=== PATIENT | female | born 1930 | race Caucasian/White ===

== ENCOUNTER 2017-02-18 01:54 | Inpatient (IN) | payer OTHER ==
[~2017-02-18] VITALS: Ht 157.5 cm; Wt 55.9 kg
[2017-02-18] VITALS (10 sets, daily range): BP systolic 91–133; BP diastolic 52–70
[~2017-02-18 01:54] MED LIST: ARICEPT10 MG PO; ASPI-COR81 M3 PO; ASPIR 8181 MG PO; CARVEDILOL25 M1 PO; CARVEDILOL3.125 M1 PO; COR6 PO; CORE25 PO; COREG12.5 MG PO; DIG125 PO; DIGOXIN0.125 M1 PO; DONEPEZIL HYDRO10 M2 PO; DYA; DYA PO; GEMFIBROZIL600 MG PO; LAC PO; LEVAQUIN750 MG PO; LEVOTHYROXIN0.088 M1 PO; LEVOXYL0.088 MG PO; LOPID600 MG PO; LORAZEPAM0.5 MG PO; MAXZIDE1 TAB PO; NEU300 PO; OMEPRAZOLE DR20 M1 PO; POTASSIUM CHLO10 MEQ PO; POTASSIUM CITR10 MEQ PO; PRADAXA150 M1 PO; PRADAXA75 M1 PO; PRILOSEC20 MG PO; SERTRALINE HYDR50 M1 PO; SIMVASTATIN10 M1 PO; SYNTHROID0.088 MG PO; TRAMADOL HCL50 MG PO; ULTRAM50 MG PO; ZOLOFT50 MG PO
[2017-02-18 02:22] LABS: BASOPHIL % 0.4 % (0-2)
[2017-02-18 02:29] LABS: CALCIUM 8.3 mg/dL (8.5-10.1); CARBON DIOXIDE 26.6 mmol/L (21-32); CHLORIDE SERUM 106 mmol/L (98-107); CREATININE SERUM 1.7 mg/dL (0.6-1.0); GLUCOSE SERUM 125 mg/dL (74-106); SODIUM SERUM 142 mmol/L (136-145)
[2017-02-18 02:30] LABS: RED CELL DISTRIBUTION WIDTH 18.1 % (11.5-14.5)
[2017-02-18 02:31] LABS: PLATELET COUNT 525 x10^3mcL (130-400)
[2017-02-18 02:39] LABS: ALKALINE PHOSPHATASE 131 U/L (46-116); ALT/SGPT 12 U/L (14-59); AST/SGOT 25 U/L (15-37); BILIRUBIN TOTAL 0.27 mg/dL (0.20-1.00); CHOLESTEROL 169 mg/dL (<200); CHOLESTEROL/HDL RATIO 4.2; HDL CHOLESTEROL 40 mg/dL (40-60); LIPASE 195 IU/L (73-393); TOTAL PROTEIN, SERUM 6.7 g/dL (6.4-8.2); TRIGLYCERIDES 86 mg/dL (<150)
[2017-02-18 02:44] LABS: T3 TOTAL 0.47 ng/mL
[2017-02-18 03:03] LABS: FREE T4 0.75 ng/dL (0.76-1.46)
[2017-02-18 03:04] LABS: FREE THYROXINE INDEX 1.2 ug/dL (1.4-4.5)
[2017-02-18 03:18] LABS: microscopic required? NO
[2017-02-18 04:17] LABS: UA SPECIFIC GRAVITY 1.015 (1.005-1.035); urine erythrocyte NEGATIVE (NEGATIVE)
[2017-02-18 04:57] LABS: MAGNESIUM 2.2 mg/dL (1.8-2.4); PHOSPHOROUS 4.4 mg/dL (2.5-4.9)
[2017-02-18] MEDS ORDERED: ALDACTONE25 MG PO (08:25)
[2017-02-18 09:35] LABS: IRON 45 ug/dL (50-170); TOTAL IRON BINDING CAPACITY 375 ug/dL (250-450)
[2017-02-18 09:54] LABS: RED BLOOD CELLS 2.07 M/mm3 (4.10-5.10)
[2017-02-18 17:22] LABS: BASOPHIL % 0.4 % (0-2)
[2017-02-18 17:29] LABS: CALCIUM 8.1 mg/dL (8.5-10.1); CARBON DIOXIDE 23.1 mmol/L (21-32); CHLORIDE SERUM 110 mmol/L (98-107); CREATININE SERUM 1.6 mg/dL (0.6-1.0); GLUCOSE SERUM 91 mg/dL (74-106); POTASSIUM SERUM 4.2 mmol/L (3.5-5.1); SODIUM SERUM 145 mmol/L (136-145)
[2017-02-18 17:47] LABS: PLATELET COUNT 478 x10^3mcL (130-400); RED CELL DISTRIBUTION WIDTH 17.6 % (11.5-14.5)
[2017-02-18 18:24] LABS: rbc morphology (normal/abnorm) ABNORMAL (NORMAL)
[2017-02-18 18:25] LABS: acanthocyte (spur cell) 1+
[2017-02-18 22:37] LABS: microscopic required? YES; urine erythrocyte NEGATIVE (NEGATIVE)
[2017-02-19 05:30] VITALS: BP 100/56
[2017-02-19 06:13] LABS: BASOPHIL % 0.3 % (0-2)
[2017-02-19 06:24] LABS: CALCIUM 8.2 mg/dL (8.5-10.1); CARBON DIOXIDE 21.4 mmol/L (21-32); CHLORIDE SERUM 110 mmol/L (98-107); CREATININE SERUM 1.6 mg/dL (0.6-1.0); GLUCOSE SERUM 80 mg/dL (74-106); MAGNESIUM 2.7 mg/dL (1.8-2.4); PHOSPHOROUS 4.9 mg/dL (2.5-4.9); POTASSIUM SERUM 4.2 mmol/L (3.5-5.1); SODIUM SERUM 145 mmol/L (136-145)
[2017-02-19 06:30] LABS: ALBUMIN 2.5 g/dL (3.4-5.0)
[2017-02-19 06:32] LABS: PLATELET COUNT 428 x10^3mcL (130-400); RED CELL DISTRIBUTION WIDTH 18.3 % (11.5-14.5)
[2017-02-19 12:55] VITALS: BP 99/66
[2017-02-19 16:52] LABS: BASOPHIL % 0.1 % (0-2)
[2017-02-19 16:54] LABS: PLATELET COUNT 410 x10^3mcL (130-400); RED CELL DISTRIBUTION WIDTH 19.6 % (11.5-14.5)
[2017-02-19 17:29] VITALS: BP 115/63
[2017-02-19 21:39] VITALS: BP 135/62
[2017-02-20 05:46] VITALS: BP 104/59
[2017-02-20 06:04] LABS: BASOPHIL % 0.3 % (0-2)
[2017-02-20 06:37] LABS: CALCIUM 8.3 mg/dL (8.5-10.1); CARBON DIOXIDE 23.4 mmol/L (21-32); CHLORIDE SERUM 111 mmol/L (98-107); CREATININE SERUM 1.4 mg/dL (0.6-1.0); GLUCOSE SERUM 108 mg/dL (74-106); MAGNESIUM 2.2 mg/dL (1.8-2.4); POTASSIUM SERUM 4.2 mmol/L (3.5-5.1); SODIUM SERUM 143 mmol/L (136-145)
[2017-02-20 06:41] LABS: PLATELET COUNT 401 x10^3mcL (130-400); RED CELL DISTRIBUTION WIDTH 18.5 % (11.5-14.5)
[2017-02-20 08:52] VITALS: BP 148/61
[2017-02-20 13:02] VITALS: BP 135/71
[2017-02-20 17:07] VITALS: BP 147/66
[2017-02-20 21:27] VITALS: BP 117/70
[2017-02-21 01:02] VITALS: Ht 157.5 cm; Wt 55.9 kg
[2017-02-21 05:39] VITALS: BP 148/64
[2017-02-21 06:55] LABS: CALCIUM 8.3 mg/dL (8.5-10.1); CARBON DIOXIDE 23.2 mmol/L (21-32); CHLORIDE SERUM 109 mmol/L (98-107); CREATININE SERUM 1.3 mg/dL (0.6-1.0); GLUCOSE SERUM 84 mg/dL (74-106); PHOSPHOROUS 3.1 mg/dL (2.5-4.9); POTASSIUM SERUM 3.7 mmol/L (3.5-5.1); SODIUM SERUM 143 mmol/L (136-145)
[2017-02-21 06:57] LABS: BASOPHIL % 0.3 % (0-2)
[2017-02-21 07:29] LABS: PLATELET COUNT 408 x10^3mcL (130-400); RED CELL DISTRIBUTION WIDTH 18.3 % (11.5-14.5)
[2017-02-21 09:15] VITALS: BP 135/60
[2017-02-21 13:58] VITALS: BP 123/48
[2017-02-21 18:25] VITALS: BP 134/55
[2017-02-21 21:59] VITALS: BP 123/73
[2017-02-22 05:51] LABS: BASOPHIL % 0.3 % (0-2)
[2017-02-22 06:04] LABS: CALCIUM 8.4 mg/dL (8.5-10.1); CARBON DIOXIDE 24.4 mmol/L (21-32); CHLORIDE SERUM 109 mmol/L (98-107); CREATININE SERUM 1.2 mg/dL (0.6-1.0); GLUCOSE SERUM 98 mg/dL (74-106); POTASSIUM SERUM 3.9 mmol/L (3.5-5.1); SODIUM SERUM 143 mmol/L (136-145)
[2017-02-22 06:12] VITALS: BP 99/63
[2017-02-22 06:53] LABS: PLATELET COUNT 441 x10^3mcL (130-400); RED CELL DISTRIBUTION WIDTH 17.9 % (11.5-14.5)
[2017-02-22] MEDS ORDERED: COR6 PO (16:52)
[2017-02-22] MEDS ORDERED: APAP/HYDROCODON1 T13 PO (16:53)
[2017-02-22] MEDS ORDERED: PRADAXA75 M1 PO (16:53)
[2017-02-22] MEDS ORDERED: LEVSIN-SL0.125 MG SL (16:53)
[2017-02-22] MEDS ORDERED: TYL325 PO (16:54)
[2017-02-22] MEDS ORDERED: COL250 PO (16:54)
[2017-02-22] MEDS ORDERED: DEP250 PO (17:00)
[2017-02-22] MEDS ORDERED: PRILOSEC OTC20 M1 PO (17:12)
[2017-02-22 17:15] VITALS: BP 99/63
[2017-02-22 17:35] VITALS: BP 109/87
== END 2017-02-22 18:15 | DRG 480 ==
LOC: ED 01:54 → DU 04:04 → MU 02-22 09:33
PROVIDERS: Family Medicine; Neuromusculoskeletal Medicine, Sports Medicine; Specialist; ADMIT Family Medicine
PROC: 0QS704Z Reposition Left Upper Femur with Internal Fixation Device, Open Approach (ICD-10-PCS; principal; 2017-02-19 07:30)
DX: S72.142A Displaced intertrochanteric fracture of left femur, initial encounter for closed fracture (principal); N17.0 Acute kidney failure with tubular necrosis; I50.43 Acute on chronic combined systolic (congestive) and diastolic (congestive) heart failure; E43 Unspecified severe protein-calorie malnutrition; I11.0 Hypertensive heart disease with heart failure; I48.2 Chronic atrial fibrillation; G30.9 Alzheimer's disease, unspecified; D50.9 Iron deficiency anemia, unspecified; F02.80 Dementia in other diseases classified elsewhere, unspecified severity, without behavioral disturbance, psychotic disturbance, mood disturbance, and anxiety; I07.1 Rheumatic tricuspid insufficiency; I27.2 Other secondary pulmonary hypertension; D47.3 Essential (hemorrhagic) thrombocythemia; E78.5 Hyperlipidemia, unspecified; E03.9 Hypothyroidism, unspecified; F32.9 Major depressive disorder, single episode, unspecified; Z66 Do not resuscitate; Z91.81 History of falling; W19.XXXA Unspecified fall, initial encounter; Y92.193 Bedroom in other specified residential institution as the place of occurrence of the external cause
CPT/HCPCS: 76001; 83880; 84439; 97110-GP; 97116-GP; 97530-GP; C1713; C9113; J0690; J1160; J1170; J1644; J2250; J2270; J2405; J3010; J3475; J7030; J7050; J7120; P9016; Q0092

== ENCOUNTER 2017-03-23 09:57 | Inpatient (IN) | payer OTHER ==
[~2017-03-23] VITALS: Ht 157.5 cm; Wt 51.0 kg
[~2017-03-23 09:57] MED LIST changes: +ALDACTONE25 MG PO; +APAP/HYDROCODON1 T13 PO; +COL250 PO; +DEP250 PO; +LEVSIN-SL0.125 MG SL; +PRILOSEC OTC20 M1 PO; +TYL325 PO
[2017-03-23 11:15] LABS: BASOPHIL % 0.5 % (0-2); PLATELET COUNT 318 x10^3mcL (130-400)
[2017-03-23 11:18] LABS: CALCIUM 8.8 mg/dL (8.5-10.1); CARBON DIOXIDE 28.3 mmol/L (21-32); CHLORIDE SERUM 108 mmol/L (98-107); CREATININE SERUM 1.6 mg/dL (0.6-1.0); GLUCOSE SERUM 106 mg/dL (74-106); POTASSIUM SERUM 3.2 mmol/L (3.5-5.1); SODIUM SERUM 147 mmol/L (136-145)
[2017-03-23 11:24] LABS: ALKALINE PHOSPHATASE 264 U/L (46-116); ALT/SGPT 9 U/L (14-59); AST/SGOT 18 U/L (15-37); BILIRUBIN TOTAL 0.4 mg/dL (0.20-1.00); MAGNESIUM 1.7 mg/dL (1.8-2.4); TOTAL PROTEIN, SERUM 6.9 g/dL (6.4-8.2)
[2017-03-23 11:25] LABS: ALBUMIN 2.6 g/dL (3.4-5.0)
[2017-03-23 11:50] LABS: RED CELL DISTRIBUTION WIDTH 16.3 % (11.5-14.5)
[2017-03-23] MEDS ORDERED: FUROSEMIDE20 MG PO (12:16)
[2017-03-23] MEDS ORDERED: CARVEDILOL6.25 M1 PO (12:17)
[2017-03-23] MEDS ORDERED: DEPAKOTE ER250 M1 PO (12:18)
[2017-03-23] MEDS ORDERED: GABAPENTIN300 M4 (12:18)
[2017-03-23] MEDS ORDERED: SERTRALINE50 M1 PO (12:19)
[2017-03-23] MEDS ORDERED: LEVOXYL0.088 MG PO (12:19)
[2017-03-23] MEDS ORDERED: GEMFIBROZIL600 MG PO (12:19)
[2017-03-23] MEDS ORDERED: LORAZEPAM1 MG PO ×2 (12:20→20:29)
[2017-03-23] MEDS ORDERED: TRAZODONE50 M1 PO (12:20)
[2017-03-23] MEDS ORDERED: PRADAXA150 M1 PO (12:20)
[2017-03-23] MEDS ORDERED: APAP500 MG PO (12:21)
[2017-03-23 13:47] VITALS: BP 115/62
[2017-03-23 13:50] VITALS: Ht 157.5 cm; Wt 51.0 kg
[2017-03-23 14:01] LABS: CHOLESTEROL/HDL RATIO 4.4; PHOSPHOROUS 3.9 mg/dL (2.5-4.9)
[2017-03-23 14:11] LABS: FREE T4 0.83 ng/dL (0.76-1.46); FREE THYROXINE INDEX 1.4 ug/dL (1.4-4.5); T4(THYROXINE) 3.9 ug/dL (4.7-13.3)
[2017-03-23 14:15] LABS: T3 TOTAL 0.44 ng/mL
[2017-03-23 17:22] VITALS: BP 103/54
[2017-03-23 19:09] LABS: UA SPECIFIC GRAVITY 1.015 (1.005-1.035); microscopic required? YES; urine erythrocyte TRACE (NEGATIVE)
[2017-03-23] MEDS ORDERED: DEPAKOTE125 MG PO (20:27)
[2017-03-23] MEDS ORDERED: NEU300 PO (20:28)
[2017-03-23 21:00] VITALS: BP 129/69
[2017-03-24 05:27] VITALS: BP 116/52
[2017-03-24 06:50] LABS: BASOPHIL % 1.1 % (0-2); PLATELET COUNT 276 x10^3mcL (130-400)
[2017-03-24 06:53] LABS: RED CELL DISTRIBUTION WIDTH 16.1 % (11.5-14.5)
[2017-03-24 07:25] LABS: CALCIUM 8.6 mg/dL (8.5-10.1); CARBON DIOXIDE 26.1 mmol/L (21-32); CHLORIDE SERUM 112 mmol/L (98-107); CREATININE SERUM 1.3 mg/dL (0.6-1.0); GLUCOSE SERUM 86 mg/dL (74-106); MAGNESIUM 2.4 mg/dL (1.8-2.4); POTASSIUM SERUM 3.1 mmol/L (3.5-5.1); SODIUM SERUM 149 mmol/L (136-145)
[2017-03-24 09:02] VITALS: BP 119/59
[2017-03-24 21:24] VITALS: BP 155/95
[2017-03-24 22:24] VITALS: BP 95/63
[2017-03-25 05:19] VITALS: BP 106/57
[2017-03-25 07:18] LABS: BASOPHIL % 1.7 % (0-2); PLATELET COUNT 310 x10^3mcL (130-400)
[2017-03-25 07:23] LABS: RED CELL DISTRIBUTION WIDTH 15.4 % (11.5-14.5)
[2017-03-25 07:44] LABS: CALCIUM 9.3 mg/dL (8.5-10.1); CARBON DIOXIDE 26.6 mmol/L (21-32); CHLORIDE SERUM 116 mmol/L (98-107); CREATININE SERUM 1.2 mg/dL (0.6-1.0); GLUCOSE SERUM 95 mg/dL (74-106); POTASSIUM SERUM 4.5 mmol/L (3.5-5.1); SODIUM SERUM 155 mmol/L (136-145)
[2017-03-25 11:17] VITALS: BP 117/64
[2017-03-25 15:26] LABS: CARBON DIOXIDE 29.6 mmol/L (21-32); CHLORIDE SERUM 112 mmol/L (98-107); CREATININE SERUM 1.3 mg/dL (0.6-1.0); GLUCOSE SERUM 114 mg/dL (74-106); SODIUM SERUM 148 mmol/L (136-145)
[2017-03-25 17:18] VITALS: BP 100/58
[2017-03-25 19:05] LABS: CALCIUM 9.1 mg/dL (8.5-10.1); CARBON DIOXIDE 28.3 mmol/L (21-32); CHLORIDE SERUM 113 mmol/L (98-107); CREATININE SERUM 1.2 mg/dL (0.6-1.0); GLUCOSE SERUM 117 mg/dL (74-106); POTASSIUM SERUM 3.7 mmol/L (3.5-5.1); SODIUM SERUM 150 mmol/L (136-145)
[2017-03-25 22:14] VITALS: BP 125/56
[2017-03-26 05:11] VITALS: BP 122/70
[2017-03-26 06:18] LABS: BASOPHIL % 0.6 % (0-2); PLATELET COUNT 323 x10^3mcL (130-400)
[2017-03-26 06:58] LABS: RED CELL DISTRIBUTION WIDTH 16.3 % (11.5-14.5)
[2017-03-26 07:14] LABS: CALCIUM 9.2 mg/dL (8.5-10.1); CARBON DIOXIDE 26.2 mmol/L (21-32); CHLORIDE SERUM 112 mmol/L (98-107); CREATININE SERUM 1.3 mg/dL (0.6-1.0); GLUCOSE SERUM 88 mg/dL (74-106); POTASSIUM SERUM 3.9 mmol/L (3.5-5.1); SODIUM SERUM 149 mmol/L (136-145)
[2017-03-26 10:00] VITALS: BP 129/57
[2017-03-26 15:45] VITALS: BP 143/88
[2017-03-26 23:07] VITALS: BP 117/63
[2017-03-27 06:18] LABS: BASOPHIL % 0.5 % (0-2); PLATELET COUNT 319 x10^3mcL (130-400)
[2017-03-27 06:49] LABS: RED CELL DISTRIBUTION WIDTH 16.5 % (11.5-14.5)
[2017-03-27 07:00] VITALS: BP 118/56
[2017-03-27 17:17] VITALS: BP 103/57
[2017-03-27 20:29] VITALS: BP 105/61
[2017-03-28 05:07] VITALS: BP 122/58
[2017-03-28 06:17] LABS: BASOPHIL % 0.5 % (0-2); PLATELET COUNT 332 x10^3mcL (130-400)
[2017-03-28 06:32] LABS: CALCIUM 8.6 mg/dL (8.5-10.1); CARBON DIOXIDE 27.2 mmol/L (21-32); CHLORIDE SERUM 111 mmol/L (98-107); CREATININE SERUM 1.3 mg/dL (0.6-1.0); GLUCOSE SERUM 100 mg/dL (74-106); MAGNESIUM 1.8 mg/dL (1.8-2.4); PHOSPHOROUS 3.4 mg/dL (2.5-4.9); POTASSIUM SERUM 3.5 mmol/L (3.5-5.1); SODIUM SERUM 149 mmol/L (136-145)
[2017-03-28 06:56] LABS: RED CELL DISTRIBUTION WIDTH 16.6 % (11.5-14.5)
[2017-03-28 09:11] VITALS: BP 127/53
[2017-03-28 18:00] VITALS: BP 104/60
[2017-03-28 21:05] VITALS: BP 100/57
[2017-03-29 06:10] VITALS: BP 125/78
[2017-03-29 10:25] VITALS: BP 110/83
[2017-03-29 11:47] LABS: BASOPHIL % 0.4 % (0-2)
[2017-03-29 11:49] LABS: PLATELET COUNT 435 x10^3mcL (130-400); RED CELL DISTRIBUTION WIDTH 16.4 % (11.5-14.5)
[2017-03-29] MEDS ORDERED: ACETAMINOPHEN-H1 TA1 PO (13:47)
[2017-03-29] MEDS ORDERED: MEG40 PO (13:47)
[2017-03-29] MEDS ORDERED: BACO TOP (13:48)
[2017-03-29 14:22] VITALS: BP 110/83
[2017-03-29 14:35] VITALS: BP 101/58
[2017-03-29 14:48] LABS: CARBON DIOXIDE 28.2 mmol/L (21-32); CHLORIDE SERUM 111 mmol/L (98-107); CREATININE SERUM 1.2 mg/dL (0.6-1.0); GLUCOSE SERUM 106 mg/dL (74-106); MAGNESIUM 1.6 mg/dL (1.8-2.4); PHOSPHOROUS 2.7 mg/dL (2.5-4.9); POTASSIUM SERUM 3.2 mmol/L (3.5-5.1); SODIUM SERUM 148 mmol/L (136-145)
== END 2017-03-29 16:02 | DRG 480 ==
LOC: ED 09:57 → MU 11:56 → DU 11:56 → MU 03-24 18:14
PROVIDERS: Emergency Medicine; Family Medicine; Neuromusculoskeletal Medicine, Sports Medicine; ADMIT Family Medicine
PROC: 0QS704Z Reposition Left Upper Femur with Internal Fixation Device, Open Approach (ICD-10-PCS; principal; 2017-03-26 11:00)
DX: M80.851A Other osteoporosis with current pathological fracture, right femur, initial encounter for fracture (principal); E43 Unspecified severe protein-calorie malnutrition; N17.0 Acute kidney failure with tubular necrosis; M97.02XA Periprosthetic fracture around internal prosthetic left hip joint, initial encounter; E87.0 Hyperosmolality and hypernatremia; N39.0 Urinary tract infection, site not specified; S72.142A Displaced intertrochanteric fracture of left femur, initial encounter for closed fracture; I12.9 Hypertensive chronic kidney disease with stage 1 through stage 4 chronic kidney disease, or unspecified chronic kidney disease; N18.9 Chronic kidney disease, unspecified; E83.42 Hypomagnesemia; E87.6 Hypokalemia; E86.0 Dehydration; E03.9 Hypothyroidism, unspecified; F41.8 Other specified anxiety disorders; E78.5 Hyperlipidemia, unspecified; I48.91 Unspecified atrial fibrillation; G30.9 Alzheimer's disease, unspecified; F02.80 Dementia in other diseases classified elsewhere, unspecified severity, without behavioral disturbance, psychotic disturbance, mood disturbance, and anxiety; Z68.20 Body mass index [BMI] 20.0-20.9, adult; Y93.89 Activity, other specified; Y92.89 Other specified places as the place of occurrence of the external cause; Z85.828 Personal history of other malignant neoplasm of skin
CPT/HCPCS: 80307; 83880; 84439; 97110-GP; C1713; J0690; J0696; J1644; J2001; J2060; J2270; J2405; J2704; J3010; J3475; J3480; J3490; J7030; J7120